=== PATIENT | male | born 1945 | race Caucasian/White ===

== ENCOUNTER 2019-02-14 07:06 | Emergency (ER) | payer MEDICARE, BC ==
[2019-02-14 07:19] VITALS: BP 141/78
--- NOTE | 2019-02-14 07:49 | UC ---
Complaint Male HPI - HPI Summary HPI Summary: 73-year-old male comes in with a chief complaint of burning with urination for 2 days. He also feels like it has to urinate more feels a fullness in the suprapubic region. Denies any fevers denies any flank pain. Feels well otherwise. No history of prostatitis as far as he knows. - History of Current Complaint Chief Complaint: UCGU Stated Complaint: URINARY ISSUE Time Seen by Provider: 02/14/19 07:38 Pain Intensity: 2 - Allergies/Home Medications Allergies/Adverse Reactions: Allergies Allergy/AdvReac Type Severity Reaction Status Date / Time No Known Allergies Allergy Verified 12/06/12 10:38 PMH/Surg Hx/FS Hx/Imm Hx Previously Healthy: Yes Endocrine History: Dyslipidemia - Surgical History Surgical History: Yes Surgery Procedure, Year, and Place: 2007 LEFT SHOULDER ROTATOR CUFF [place] [facility] [place] [facility] [place] - Family History Known Family History: Positive: Non-Contributory - Social History Alcohol Use: Weekly Substance Use Type: None Smoking Status (MU): Never Smoked Tobacco Review of Systems All Other Systems Reviewed And Are Negative: Yes Constitutional: Positive: Negative Skin: Positive: Negative Eyes: Positive: Negative ENT: Positive: Negative Respiratory: Positive: Negative Cardiovascular: Positive: Negative Gastrointestinal: Positive: Negative Genitourinary: Positive: Dysuria, Frequency, Urgency Motor: Positive: Negative Neurovascular: Positive: Negative Musculoskeletal: Positive: Negative Neurological: Positive: Negative Psychological: Positive: Negative Is Patient Immunocompromised?: No Physical Exam Triage Information Reviewed: Yes Appearance: Well-Appearing, No Pain Distress, Well-Nourished Vital Signs: Initial Vital Signs Temp 98.2 F 02/14/19 07:14 Pulse 75 02/14/19 07:14 Resp 18 02/14/19 07:14 BP 141/78 02/14/19 07:14 Pulse Ox 99 02/14/19 07:14 Vital Signs Reviewed: Yes Eye Exam: Normal Eyes: Positive: Conjunctiva Clear Neck: Positive: Supple Respiratory: Positive: Lungs clear, Normal breath sounds, No respiratory distress Cardiovascular: Positive: RRR Abdomen Description: Negative: CVA Tenderness (R), CVA Tenderness (L) Musculoskeletal: Positive: Strength Intact, ROM Intact Neurological Exam: Normal Neurological: Positive: Alert, Muscle Tone Normal Psychological Exam: Normal Psychological: Positive: Age Appropriate Behavior Skin Exam: Normal Complaint Male Course/Dx - Course Course Of Treatment: No obvious signs of prostatitis at this time. At the patient know that if he did not improve he worsens he needs to get reevaluated again right away. - Differential Dx/Diagnosis Provider Diagnosis: UTI (urinary tract infection) Discharge - Sign-Out/Discharge Documenting (check all that apply): Patient Departure All imaging exams completed and their final reports reviewed: No Studies - Discharge Plan Condition: Stable Disposition: HOME Prescriptions: Sulfamethox/Trimethoprim DS* [Bactrim DS 800/160 TAB*] 1 tab PO BID #20 tab Patient Education Materials: Urinary Tract Infection in Men (ED) Referrals: Dave Gabriel MD [Primary Care Provider] - Additional Instructions: FOLLOW UP WITH YOUR DOCTOR IF NOT COMPLETELY IMPROVED. GET RECHECKED SOONER IF YOU DO NOT IMPROVE OR YOUR CONDITION WORSENS; FEVER, PAIN, YOU FEEL ILL OR ANY QUESTIONS OR CONCERNS. - Billing Disposition and Condition Condition: STABLE Disposition: Home
== END 2019-02-14 07:53 | disposition home or self-care (01) ==
LOC: UCEAST 07:06
DX: N39.0 Urinary tract infection, site not specified (principal); E78.5 Hyperlipidemia, unspecified
CPT/HCPCS: 81002; 87077; 87086; 87186; 99212; G0463

== ENCOUNTER 2024-08-24 17:29 | Observation (INO) ==
[2024-08-24] MEDS ORDERED: Iodixanol 320 (CONTRAST) 100 ML SDV IV ONE (17:56)
[2024-08-24 17:58] LABS: ABS Eosinophils 0.1 10^3/uL (0.0-0.5); ABS Lymphocytes 1.9 10^3/uL (1.0-4.8); ABS Monocytes 1.1 10^3/uL (0.0-1.1); ABS Neutrophils 4.1 10^3/uL (1.5-7.6); Eosinophil % 1.4 %; Hematocrit 42.3 % (38-53); Hemoglobin 14.3 g/dL (13.2-16.3); Lymphocyte % 26.2 %; Mean Corpuscular Hemoglobin 29.9 pg (27-33); Mean Corpuscular Hgb Conc 33.7 g/dL (31-36); Mean Corpuscular Volume 88.7 fL (80-97); Mean Platelet Volume 6.4 fL (7.5-11.2); Platelet Count 250 10^3/uL (150-450); Red Blood Count 4.77 10^6/uL (4.06-5.63); Red Cell Distribution Width 13.8 % (12-17); White Blood Count 7.2 10^3/uL (3.6-10.2)
[2024-08-24 18:09] LABS: Activated Partial Thrombo Time 29.9 seconds (26.0-38.0); INR 1.03 (0.85-1.14)
[2024-08-24] MEDS: levETIRAcetam 1000MG IVPREMIX 1,000 MG/100 ML BAG IVPB ONE (18:17)
[2024-08-24 18:38] LABS: Albumin 4.2 g/dL (3.5-5.7); Albumin/Globulin Ratio 1.6 (1-3); Creatinine, Serum 1.44 mg/dL (0.67-1.17); Globulin 2.7 g/dL (2-4); Indirect Bilirubin 0.4 mg/dL (0.3-1.0); Potassium 4.3 mmol/L (3.5-5.0); Total Bilirubin 0.4 mg/dL (0.2-1.0); Total Protein 6.9 g/dL (6.4-8.9); eGFR CKD-EPI 49.7 (>60)
[2024-08-24] MEDS: Aspirin EC 81 mg TAB.EC (enteric coated) PO SCH (20:54)
[2024-08-25 06:49] LABS: ABS Eosinophils 0.1 10^3/uL (0.0-0.5); ABS Lymphocytes 1.1 10^3/uL (1.0-4.8); ABS Monocytes 0.7 10^3/uL (0.0-1.1); ABS Neutrophils 3.7 10^3/uL (1.5-7.6); Eosinophil % 1.5 %; Hematocrit 37.5 % (38-53); Hemoglobin 12.7 g/dL (13.2-16.3); Lymphocyte % 19.8 %; Mean Corpuscular Hgb Conc 33.9 g/dL (31-36); Mean Corpuscular Volume 88.4 fL (80-97); Mean Platelet Volume 6.6 fL (7.5-11.2); Platelet Count 201 10^3/uL (150-450); Red Blood Count 4.24 10^6/uL (4.06-5.63); Red Cell Distribution Width 13.8 % (12-17); White Blood Count 5.6 10^3/uL (3.6-10.2)
[2024-08-25 07:25] LABS: Calcium 8.1 mg/dL (8.6-10.3); Creatinine, Serum 1.2 mg/dL (0.67-1.17); Phosphorus 2.2 mg/dL (2.5-5.0); eGFR CKD-EPI 61.9 (>60)
[2024-08-25 07:40] LABS: TSH Ultra Thyroid Stim Horm 5.32 mcIU/mL (0.34-5.60)
[2024-08-25 14:00] VITALS: BP 112/75
== END 2024-08-25 16:42 | disposition home or self-care (01) ==
LOC: ED 17:29 → EDHOLD 17:29 → SUATTDRO 19:31 → MEDTELE 08-25 07:39
PROVIDERS: ADMIT Student in an Organized Health Care Education/Training Program; ATTEND Internal Medicine